=== PATIENT | female | born 1970 | race African-American/Black ===

== ENCOUNTER 2022-01-15 19:37 | Emergency (ER) | payer SELFPAY ==
[~2022-01-15] VITALS: Ht 149.9 cm; Wt 68.2 kg
[2022-01-15 19:47] VITALS: TEMP 98.4
[2022-01-15 20:15] LABS: BASO % 0.3 % (0.0-2.0); EOS # 0.2 K/mm3 (0.0-0.7); GRAN # 4.8 K/mm3 (1.4-6.5); GRAN % 64.1 % (42.2-75.2); HEMATOCRIT 41.3 % (37.0-47.0); LYMPH # 1.5 K/mm3 (1.2-3.4); LYMPH % 20.5 % (20.0-51.0); MEAN CELL VOLUME 91 fl (80.0-100.0); MEAN CORPUSCULAR HEMOGLOBIN 31 pg (27-31); MEAN CORPUSCULAR HGB CONC 34 g/dl (33.0-37.0); PLATELET COUNT 248 K/mm3 (130-400); RED BLOOD COUNT 4.53 M/mm3 (4.10-5.30); REDCELL DISTRIBUTION WIDTH-CV 12.9 % (11.5-14.5)
[2022-01-15 20:35] LABS: ALANINE AMINOTRANSFERASE 15 U/L (0-55); ALBUMIN 3.7 gm/dL (3.5-5.0); ALKALINE PHOSPHATASE 71 U/L (40-150); ANION GAP 10 mmol/L (7-16); AST,SGOT 22 U/L (5-34); BILIRUBIN,TOTAL 0.4 mg/dL (0.2-1.2); BLOOD UREA NITROGEN 15 mg/dL (7-19); CALCIUM 8.8 mg/dL (8.4-10.2); CARBON DIOXIDE 26 mmol/L (22-29); CHLORIDE 107 mmol/L (98-107); CREATININE, serum 0.83 mg/dL (0.57-1.11); GLUCOSE 101 mg/dL (70-99); LIPASE 58 U/L (8-78); POTASSIUM 3.9 mmol/L (3.5-4.5); SODIUM 143 mmol/L (136-145); TOTAL PROTEIN 7.3 gm/dL (6.2-8.1)
[2022-01-15 20:41] LABS: TROPONIN-I < 0.010 ng/mL (0.00-0.033)
[2022-01-15] MEDS ORDERED: PROTONIX20 MG PO ×2 (21:06)
[2022-01-15] MEDS ORDERED: NAPROSYN500 MG PO ×2 (21:06)
[2022-01-15 21:35] VITALS: BP 147/77; PULSE 78
[2022-01-22] MEDS ORDERED: NAPROSYN500 MG PO (09:16)
[2022-01-22] MEDS ORDERED: PROTONIX20 MG PO (09:16)
== END 2022-01-15 21:35 | disposition home or self-care (01) ==
LOC: COL.ER 19:37 → EDSEX 19:42 → COL.ER 19:42
PROVIDERS: Emergency Medicine
DX: M54.6 Pain in thoracic spine (principal); R07.89 Other chest pain
CPT/HCPCS: J1885; J7030